=== PATIENT | male | born 2000 | race Caucasian/White ===

== ENCOUNTER 2018-01-18 13:51 | Observation (INO) | payer SELFPAY ==
[2018-01-18] MEDS ORDERED: NA CHLORIDE 0.9% 1,000 ML ONE (14:18)
[2018-01-18 15:26] LABS: Absolute Monocytes 0.9 K/uL (0.1-1.3); Absolute Neutrophil 16.5 K/uL (1.8-8.0); Basophils % 0.2 % (0-1.3); Eosinophils % 0.2 % (0-4.4); Hematocrit 46.2 % (39.6-49.0); Lymphocytes % 10.4 % (15.3-44.8); MCH 29.2 pg (27.0-35.0); MCV 85.3 fL (80-100); MPV 10.2 fL (7.6-11.3); Monocytes % 4.7 % (3.3-12.3); RBC Red Blood Cell Count 5.42 M/uL (4.33-5.43)
[2018-01-18 16:30] LABS: Albumin 4.4 g/dL (3.4-5.0); Bilirubin Direct 0.2 mg/dL (0-0.2); Bilirubin Total 0.7 mg/dL (0.2-1.0); Potassium 3.5 mmol/L (3.5-5.1); Protein, Total 8.2 g/dL (6.4-8.2); Troponin (Emerg Dept Use Only) 0.17 ng/mL (0.0-0.045)
--- NOTE | 2018-01-18 17:17 | RAD REPORT ---
EXAM DESCRIPTION: CT - Chest For Pe Angio - 01/18/2018 5:05 pm CLINICAL HISTORY: Chest pain COMPARISON: None. TECHNIQUE: Dynamically enhanced axial 3 mm thick images of the chest were obtained during administra tion of <100> mL Isovue 370 IV contrast. Coronal and oblique reconstruction images were generated and reviewed. Exam utilizes a protocol for optimal evaluation of pulmonary arterial tree. Maximum intensity projections 3D imaging was utilized All CT scans are performed using dose optimization technique as appropriate and may include automated exposure control or mA/KV adjustment according to patient size. FINDINGS: The opacification the pulmonary arteries is suboptimal. A gross pulmonary embolus is not seen. . A thoracic aortic aneurysm is not noted. A pleural effusion is not seen. A pericardial effusion is not seen. A lung consolidation is not present. Fatty infiltration liver seen IMPRESSION: Negative for a pulmonary embolism.
[2018-01-18] MEDS ORDERED: ASPIRIN 81 MG CHEWABLE TABLET ONE (17:43)
[2018-01-18] MEDS ORDERED: MORPHINE 2 MG/ML SYR IV PRN (20:03)
[2018-01-18] MEDS ORDERED: ONDANSETRON 4 MG/2 ML VIAL IV PRN (20:03)
[2018-01-18] MEDS ORDERED: ACETAMINOPHEN 500 MG TAB PO PRN (20:03)
--- NOTE | 2018-01-18 20:17 | ER ---
Nurse's Notes [facility] Name: Marvin Escudero Age: 17 yrs Sex: Male : 2000 Arrival Date: 01/18/2018 Time: 14:00 Bed 15 Private MD: Diagnosis: Elevated troponin Presentation: 01/18 14:00 Presenting complaint: Patient states: He was at work, and they got behind schedule so aj1 they started picking up the pace and working faster. Shortly after that he began to feel hot and dizzy so he told his partner that he needed to sit down, and EMS was called by his work personnel. Patient states that he feels better now, no complaints at this time. Denies pain. Transition of care: patient was not received from another setting of care. Onset of symptoms was January 18, 2018. Risk Assessment: Do you want to hurt yourself or someone else? Patient reports no desire to harm self or others. Initial Sepsis Screen: Does the patient meet any 2 criteria? No. Patient's initial sepsis screen is negative. Does the patient have a suspected source of infection? No. Patient's initial sepsis screen is negative. Care prior to arrival: Medication(s) given: Normal saline infusion, 250 mL IV initiated. 18 GA, in the left forearm, Glucose check: 130. 14:00 Method Of Arrival: EMS: [facility] aj1 14:00 Acuity: DEIRDRE 3 aj1 Triage Assessment: 14:04 General: Appears in no apparent distress. comfortable, Behavior is calm, cooperative, aj1 appropriate for age. Pain: Denies pain. Historical: - Allergies: 14:04 No Known Allergies; aj1 - Home Meds: 14:04 lisinopril 20 mg Oral tab 1 tab once daily [Active]; aj1 - PMHx: 14:04 Hypertension; aj1 - Immunization history:: Flu vaccine is not up to date. - Social history:: Smoking status: Patient/guardian denies using tobacco. - Ebola Screening: : Patient denies travel to an Ebola-affected area in the 21 days before illness onset. Screenin:06 Abuse screen: Denies threats or abuse. Denies injuries from another. Nutritional aj1 screening: No deficits noted. Tuberculosis screening: No symptoms or risk factors identified. 19:00 Fall Risk None identified. jb4 Assessment: 14:06 General: Appears in no apparent distress. comfortable, Behavior is calm, cooperative, aj1 appropriate for age. Pain: Denies pain. Neuro: Level of Consciousness is awake, alert, obeys commands. Cardiovascular: Denies chest pain, Patient's skin is warm and dry. Respiratory: Airway is patent Respiratory effort is even, unlabored, Respiratory pattern is regular, symmetrical, Denies shortness of breath. GI: No signs and/or symptoms were reported involving the gastrointestinal system. : No signs and/or symptoms were reported regarding the genitourinary system. EENT: No signs and/or symptoms were reported regarding the EENT system. Derm: No signs and/or symptoms reported regarding the dermatologic system. Skin is pink, warm \\T\\ dry. normal. Musculoskeletal: No signs and/or symptoms reported regarding the musculoskeletal system. Circulation, motion, and sensation intact. 15:14 Reassessment: Patient appears in no apparent distress at this time. No changes from aj1 previously documented assessment. Patient and/or family updated on plan of care and expected duration. Pain level reassessed. Patient is alert, oriented x 3, equal unlabored respirations, skin warm/dry/pink. 16:35 Reassessment: Patient appears in no apparent distress at this time. No changes from aj1 previously documented assessment. Patient and/or family updated on plan of care and expected duration. Pain level reassessed. Patient is alert, oriented x 3, equal unlabored respirations, skin warm/dry/pink. 16:45 Reassessment: Patient states that he does not want to be admitted, he would like to aj1 leave instead because he has "stuff to do", when asked what he needed to do that was more important than his life patient shrugged. Patient was educated on risks of leaving with elevated troponin, such as sudden cardiac . Patient states that he can't sleep when he is in the hospital. Offered to patient to obtain an order for a sleep aid to help him sleep. Patient declines. Stressed to patient how important cardiac work up is with elevated troponin level. Patient states that he will think about staying. 17:20 Reassessment: Patient and/or family updated on plan of care and expected duration. Pain aj1 level reassessed. General: Appears in no apparent distress. comfortable, Behavior is calm, cooperative, appropriate for age. Pain: Denies pain. Neuro:. Neuro: Level of Consciousness is awake, alert, obeys commands. Cardiovascular: Denies chest pain, Patient's skin is warm and dry. Rhythm is sinus rhythm Chest pain is denied. Respiratory: Airway is patent Respiratory effort is even, unlabored, Respiratory pattern is regular, symmetrical. GI: No signs and/or symptoms were reported involving the gastrointestinal system. : No signs and/or symptoms were reported regarding the genitourinary system. Derm: No signs and/or symptoms reported regarding the dermatologic system. Skin is pink, warm \\T\\ dry. normal. Musculoskeletal: Circulation, motion, and sensation intact. 17:50 Reassessment: Patient maintains that he does not want to be admitted, does not want to aj1 explain why. Explained to patient that he will have a private room, and we would do our best to accommodate any issue he has that is making him want to leave. Patient asks if a guest can stay with him in the room. Patient was told that would be fine. Patient states that he needs to make a phone call, and that will determine if he stays. 18:14 Reassessment: Patient appears in no apparent distress at this time. No changes from aj1 previously documented assessment. Patient and/or family updated on plan of care and expected duration. Pain level reassessed. Patient is alert, oriented x 3, equal unlabored respirations, skin warm/dry/pink. 18:27 Reassessment: Patient states that he would like to be discharged right now. Asked aj1 patient again if there was anything that we could do that would convince him to stay. Patient asks if we have a phone he can use. Patient was given phone at nurses station to make a phone call. After the call was completed patient states "I guess I'll stay." Notified FRANCHESCA Paz. 19:00 Reassessment: Patient appears in no apparent distress at this time. Patient and/or jb4 family updated on plan of care and expected duration. Pain level reassessed. Patient is alert, oriented x 3, equal unlabored respirations, skin warm/dry/pink. Guest at the bedside. Alarm noted on ECG monitor, Physician notified, repeat EKG performed. Patient states feeling better. 20:00 Reassessment: Patient appears in no apparent distress at this time. Patient and/or jb4 family updated on plan of care and expected duration. Pain level reassessed. Patient is alert, oriented x 3, equal unlabored respirations, skin warm/dry/pink. Patient states feeling better. 21:00 Reassessment: Patient appears in no apparent distress at this time. Patient and/or jb4 family updated on plan of care and expected duration. Pain level reassessed. Patient is alert, oriented x 3, equal unlabored respirations, skin warm/dry/pink. Pt transferred to [facility]. Vital Signs: 14:04 BP 138 / 68; Pulse 96; Resp 20; Temp 98.2(TE); Pulse Ox 96% on R/A; Weight 143.79 kg aj1 (R); Height 6 ft. 0 in. (182.88 cm) (R); Pain 0/10; 15:14 BP 133 / 58; Pulse 107; Resp 18; Pulse Ox 98% on R/A; aj1 16:45 BP 117 / 79; Pulse 92; Resp 20; Pulse Ox 98% on R/A; aj1 18:14 BP 127 / 75; Pulse 95; Resp 18; Pulse Ox 97% on R/A; 1 19:00 BP 138 / 87; Pulse 92; Resp 18; Pulse Ox 95% ; jb4 20:00 BP 138 / 55; Pulse 94; Resp 18; Pulse Ox 98% on R/A; jb4 21:00 BP 122 / 75; Pulse 89; Resp 18; Pulse Ox 98% on R/A; jb4 14:04 Body Mass Index 42.99 (143.79 kg, 182.88 cm) [facility] ED Course: 14:00 Patient arrived in ED. [facility] 14:00 Elliot Mccormack PA is PHCP. [facility] 14:00 Prince Shields MD is Attending Physician. [facility] 14:03 Triage completed. aj1 14:04 Arm band placed on. aj1 14:06 Patient has correct armband on for positive identification. Bed in low position. Call [facility] light in reach. Side rails up X 1. 14:06 No provider procedures requiring assistance completed. aj1 14:06 Maintain EMS IV. Dressing intact. Good blood return noted. Site clean \\T\\ dry. Gauge \\T\\ aj 1 site: 18g left AC. 14:10 Vicky Roca RN is Primary Nurse. 1 14:50 EKG done, by polysomnograph tech. reviewed by Ellito SORENSEN. 3 16:53 REPEAT EKG WAS DONE. 3 17:06 CT Chest For PE Angio In Process Unspecified. EDMS 19:00 vehicle monitor technician on. Pulse ox on. NIBP on. jb4 20:02 Primary Nurse role handed off by Vicky Roca, LAURE [email or web address] 20:02 Yahir Lazo, RN is Primary Nurse. jb4 20:16 Ledy Mejia MD is Hospitalizing Provider. jm 21:00 Patient admitted, IV remains in place. jb4 Administered Medications: 14:49 Drug: NS 0.9% 1000 ml Route: IV; Rate: 1000 ml; Site: left antecubital; aj1 17:41 Drug: Aspirin Chewable Tablet 324 mg Route: PO; aj1 Outcome: 20:16 Decision to Hospitalize by Provider. [facility] 21:00 Admitted to Tele accompanied by nurse, via wheelchair, room 409, with chart, Report jb4 called to Mony Hawthorne RN 21:00 Condition: stable 21:00 Instructed on the need for admit, Demonstrated understanding of follow-up care. 21:18 Patient left the ED. jb4 Signatures: Dispatcher [employer] EDMS Vicky Roca, LAURE RN aj1 Elliot Mccormack PA PA [facility] Yahir Lazo, RN RN jb4 Isa Rascon 3
--- NOTE | 2018-01-18 20:17 | EDPHYS ---
Physician Documentation [facility] Name: Marvin Escudero Age: 17 yrs Sex: Male : 2000 Arrival Date: 01/18/2018 Time: 14:00 Bed 15 Private MD: ED Physician Prince Shields HPI: 01/18 14:08 This 17 yrs old Male presents to ER via EMS with complaints of Dizziness. jmm 14:08 The patient has experienced near-syncope. Onset: The symptoms/episode began/occurred jmm acutely, just prior to arrival. Associated injury: The patient did not suffer any apparent associated injury. Associated signs and symptoms: Pertinent positives: dizziness, Pertinent negatives: chest pain. This is a 17 year old male with a history of htn that presents to the ED with a near syncopal episode secondary to working outside just prior to arrival. Patient states his symptoms have improved after administration of IVF. Patient currently denies chest pain or shortness of breath. . Historical: - Allergies: 14:04 No Known Allergies; aj1 - Home Meds: 14:04 lisinopril 20 mg Oral tab 1 tab once daily [Active]; aj1 - PMHx: 14:04 Hypertension; aj1 - Immunization history:: Flu vaccine is not up to date. - Social history:: Smoking status: Patient/guardian denies using tobacco. - Ebola Screening: : Patient denies travel to an Ebola-affected area in the 21 days before illness onset. ROS: 14:08 Constitutional: Negative for fever, chills, and weight loss, Cardiovascular: Negative jmm for chest pain, palpitations, and edema, Respiratory: Negative for shortness of breath, cough, wheezing, and pleuritic chest pain. 14:08 Neuro: Positive for dizziness, near syncope. 14:08 All other systems are negative. Exam: 14:08 Constitutional: This is a well developed, well nourished patient who is awake, alert, jmm and in no acute distress. Head/Face: atraumatic. Eyes: EOMI, no conjunctival erythema appreciated ENT: Moist Mucus Membranes Neck: Trachea midline, Supple Chest/axilla: Normal chest wall appearance and motion. Cardiovascular: Regular rate and rhythm. No edema appreciated Respiratory: Normal respirations, no respiratory distress appreciated Abdomen/GI: Non distended, soft Back: Normal ROM Skin: General appearance color normal MS/ Extremity: Moves all extremities, no obvious deformities appreciated, no edema noted to the lower extremities Neuro: Awake and alert, normal gait Psych: Behavior is normal, Mood is normal, Patient is cooperative and pleasant 14:08 Constitutional: The patient appears in no acute distress, alert, awake. 14:19 ECG was reviewed by the Attending Physician. [facility] Vital Signs: 14:04 BP 138 / 68; Pulse 96; Resp 20; Temp 98.2(TE); Pulse Ox 96% on R/A; Weight 143.79 kg [facility] (R); Height 6 ft. 0 in. (182.88 cm) (R); Pain 0/10; 15:14 BP 133 / 58; Pulse 107; Resp 18; Pulse Ox 98% on R/A; aj1 16:45 BP 117 / 79; Pulse 92; Resp 20; Pulse Ox 98% on R/A; 1 18:14 BP 127 / 75; Pulse 95; Resp 18; Pulse Ox 97% on R/A; 1 19:00 BP 138 / 87; Pulse 92; Resp 18; Pulse Ox 95% ; jb4 20:00 BP 138 / 55; Pulse 94; Resp 18; Pulse Ox 98% on R/A; jb4 21:00 BP 122 / 75; Pulse 89; Resp 18; Pulse Ox 98% on R/A; jb4 14:04 Body Mass Index 42.99 (143.79 kg, 182.88 cm) [facility] MDM: 14:09 Patient medically screened. [facility] 20:27 Data reviewed: vital signs, nurses notes, lab test result(s), EKG, radiologic studies, [facility] CT scan, plain films. Counseling: I had a detailed discussion with the patient and/or guardian regarding: the historical points, exam findings, and any diagnostic results supporting the discharge/admit diagnosis, lab results, radiology results, the need for further work-up and treatment in the hospital. ED course: I discussed the patient with Dr. Mejia whom accepted transfer. 01/18 14:10 Order name: Basic Metabolic Panel; Complete Time: 16:30 [facility] 01/18 14:10 Order name: CBC with Diff; Complete Time: 15:38 [facility] 01/18 14:10 Order name: Creatinine for Radiology; Complete Time: 16:29 [facility] 01/18 14:10 Order name: Hepatic Function; Complete Time: 16:30 [facility] 01/18 14:10 Order name: Lipase; Complete Time: 16:30 [facility] 01/18 14:10 Order name: CPK; Complete Time: 16:30 [facility] 01/18 14:10 Order name: Troponin (emerg Dept Use Only); Complete Time: 16:30 [facility] 01/18 18:36 Order name: Troponin (emerg Dept Use Only); Complete Time: 20:01 [facility] 01/18 20:07 Order name: CBC with Automated Diff [facility] 01/18 20:07 Order name: CBC with Automated Diff [facility] 01/18 20:07 Order name: CKMB Creatine Kinase MB [facility] 01/18 20:07 Order name: CKMB Creatine Kinase MB [facility] 01/18 20:07 Order name: CKMB Creatine Kinase MB [facility] 01/18 20:07 Order name: Comprehensive Metabolic Panel [facility] 01/18 16:49 Order name: CT Chest For PE Angio; Complete Time: 17:19 [facility] 01/18 17:54 Order name: EKG Electrocardiogram [facility] 01/18 17:54 Order name: EKG Electrocardiogram [facility] 01/18 20:07 Order name: CONS Pharmacy Consult [facility] 01/18 20:07 Order name: Echo with Doppler [facility] 01/18 20:07 Order name: Comprehensive Metabolic Panel [facility] 01/18 20:07 Order name: Creatine Phosphokinase [facility] 01/18 20:07 Order name: Creatine Phosphokinase [facility] 01/18 20:07 Order name: Creatine Phosphokinase [facility] 01/18 20:07 Order name: Lipid Profile [facility] 01/18 20:07 Order name: Lipid Profile [facility] 01/18 20:07 Order name: Troponin I [facility] 01/18 20:07 Order name: Troponin I [facility] 01/18 20:07 Order name: Troponin I [facility] 01/18 14:10 Order name: IV Saline Lock; Complete Time: 14:11 [facility] 01/18 14:10 Order name: Labs collected and sent; Complete Time: 14:11 [facility] 01/18 14:10 Order name: EKG - Nurse/Tech; Complete Time: 14:50 [facility] 01/18 19:21 Order name: EKG - Nurse/Tech; Complete Time: 20:02 [facility] 01/18 20:07 Order name: Regular EDMS EC:19 Rate is 94 beats/min. Rhythm is regular. QRS [place] is Normal. [place] interval is normal. QRS jmm interval is normal. QT interval is normal. No Q waves. T waves are Normal. No ST changes noted. Reviewed by me. Administered Medications: 14:49 Drug: NS 0.9% 1000 ml Route: IV; Rate: 1000 ml; Site: left antecubital; aj1 17:41 Drug: Aspirin Chewable Tablet 324 mg Route: PO; aj1 Disposition: 01/18/18 20:16 Hospitalization ordered by Ledy Mejia for Observation. Preliminary diagnosis is Elevated troponin. - Bed requested for Telemetry/MedSurg (observation). - Status is Observation. jb4 - Condition is Stable. - Problem is new. - Symptoms have improved. UTI on Admission? No Addendum: 01/20/2018 13:37 Co-signature as Attending Physician, Prince Shields MD I agree with the assessment and k dr plan of care. Signatures: Dispatcher [employer] EDVicky Ojeda RN RN aj1 Shannon Nguyen RN RN mw Rittger, Kevin, MD MD [facility] Elliot Mccormack PA PA jmm Bryson, James, RN RN jb4 Corrections: (The following items were deleted from the chart) 01/18 20:31 20:16 Hospitalization Ordered by Ledy Mejia MD for Observation. Preliminary diagnosis is Elevated troponin. Bed requested for Telemetry/MedSurg (observation). Status is Observation. Condition is Stable. Problem is new. Symptoms have improved. UTI on Admission? No. [facility] 21:18 20:31 01/18/2018 20:16 Hospitalization Ordered by Ledy Mejia MD for Observation. jb4 Preliminary diagnosis is Elevated troponin. Bed requested for Telemetry/MedSurg (observation). Status is Observation. Condition is Stable. Problem is new. Symptoms have improved. UTI on Admission? No. donald
[2018-01-18] MEDS ORDERED: NA CHLORIDE 0.9% 1,000 ML IV SCH (21:00)
[2018-01-18 21:31] VITALS: BMI 43.3
[2018-01-18 21:34] VITALS: O2SAT 98
[2018-01-19 01:11] LABS: CKMB Creatine Kinase MB 7.3 ng/mL (0.3-3.6); Troponin I 0.08 ng/mL (0.0-0.045)
[2018-01-19] MEDS: D5W 1,000 ML with NA BICARB 8.4% 50 MEQ IV SCH ×4 (03:00→10:00)
[2018-01-19] MEDS ORDERED: SODIUM BICARB 50 MEQ/50ML VIAL ONE (03:22)
[2018-01-19] MEDS ORDERED: D5W 1,000 ML IV ONE (03:23)
[2018-01-19 05:23] LABS: Absolute Lymphocytes (CBC) 4.3 K/uL (0.7-4.9); Absolute Monocytes 0.9 K/uL (0.1-1.3); Absolute Neutrophil 5.1 K/uL (1.8-8.0); Basophils % 0.4 % (0-1.3); Eosinophils % 2.3 % (0-4.4); Hematocrit 42.5 % (39.6-49.0); Lymphocytes % 40.5 % (15.3-44.8); MCH 29.5 pg (27.0-35.0); MCV 86.1 fL (80-100); MPV 9.5 fL (7.6-11.3); Monocytes % 8.6 % (3.3-12.3); RBC Red Blood Cell Count 4.94 M/uL (4.33-5.43)
[2018-01-19 05:58] LABS: ALT/SGPT 101 U/L (12-78); AST/SGOT 66 U/L (15-37); Albumin 3.6 g/dL (3.4-5.0); Alkaline Phosphatase 65 U/L (45-117); BUN Blood Urea Nitrogen 13 mg/dL (7-18); Bicarbonate 24 mmol/L (21-32); Bilirubin Total 0.5 mg/dL (0.2-1.0); Glucose Level 110 mg/dL (74-106); HDL Cholesterol 29 mg/dL (40-60); LDL Cholesterol, Calculated 84 (<130); Potassium 3.7 mmol/L (3.5-5.1); Protein, Total 6.8 g/dL (6.4-8.2); Sodium Level 141 mmol/L (136-145)
[2018-01-19 06:06] LABS: CKMB Creatine Kinase MB 5.9 ng/mL (0.3-3.6); Troponin I 0.04 ng/mL (0.0-0.045)
[2018-01-19] MEDS ORDERED: MORPHINE 4 MG/ML SYR IV PRN (07:10)
--- NOTE | 2018-01-19 08:12 | P.HP ---
Certification for Inpatient Patient admitted to: Observation With expected LOS: <2 Midnights Patient will require the following post-hospital care: None Practitioner: I am a practitioner with admitting privileges, knowledge of patient current condition, hospital course, and medical plan of care. 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 Apparently they were behind and his visual supervisor was pushing him to do a lot in a short amount of town. He said he was released for after we working all day. He started feeling hot and cold but was not having significant diaphoresis. He was drinking a lot of fluids but he just was not feeling better so he came into the emergency room. In the emergency room he was found to have mildly elevated CPK and troponin levels. He was admitted to the hospital for further observation. I think the troponin is an incidental finding with his elevation in his muscle enzyme. Will monitor the trend and get an echocardiogram. Patient is not having any chest pain and not having any EKG changes the either. Patient will be admitted for observation. Allergies No Known Allergies Allergy (Unverified 01/18/18 20:25) Home Medications: Lisinopril [Prinivil] 20 mg PO DAILY 01/19/18 - Past Medical/Surgical History Diabetic: No -: HTN -: none - Family History Father Medical History: Hypertension, Other (see notes) Mother Medical History: Other (see notes) - Social History Smoking Status: Never smoker Alcohol use: Yes CD- Drugs: No Caffeine use: Yes Place of Residence: Home Review of Systems 10-point ROS is otherwise unremarkable Physical Examination - Vital Signs Temperature: 97.3 F Blood Pressure: 131/61 Pulse: 85 Respirations: 20 Pulse Ox (%): 96 - Physical Exam General: Alert, In no apparent distress, Oriented x3 HEENT: Atraumatic, PERRLA, Mucous membr. moist/pink, EOMI, Sclerae nonicteric Neck: Supple, 2+ carotid pulse no bruit, No LAD, Without JVD or thyroid abnormality Respiratory: Clear to auscultation bilaterally, Normal air movement Cardiovascular: Regular rate/rhythm, Normal S1 S2, No murmurs Gastrointestinal: Normal bowel sounds, Soft and benign, Non-distended, No tenderness Musculoskeletal: No clubbing, No swelling, No tenderness Integumentary: No rashes Neurological: Normal gait, Normal speech, Normal strength at 5/5 x4 extr, Normal tone, Sensation intact, Cranial nerves 3-12 intact, Normal affect Lymphatics: No axilla or inguinal lymphadenopathy - Studies Laboratory Data (last 24 hrs) 01/18/18 14:15: Creatinine 1.20 01/18/18 14:15: WBC 19.5 H, Hgb 15.8, Hct 46.2, Plt Count 277 01/18/18 14:15: Sodium 139, Potassium 3.5, BUN 18, Creatinine 1.20, Glucose 71 L , Total Bilirubin 0.7, AST 53 H, ALT 121 H, Alkaline Phosphatase 76, Lipase 124 Assessment & Plan - Problems (Diagnosis) (1) Rhabdomyolysis Current Visit: Yes Status: Acute (2) Elevated troponin Current Visit: Yes Status: Acute - Plan Plan: 1. Aggressive IV hydration 2. Bicarbonate drip 3. Monitor CPK level as well as urine pH 4. GI and DVT prophylaxis - Advance Directives Does patient have a Living Will: No Does patient have a Durable POA for Healthcare: No - Code Status/Comfort Care Code Status Assessed: Yes Code Status: Full Code Critical Care: No
--- NOTE | 2018-01-19 08:13 | EKG ---
Test Date: 2018-01-18 Test Time: 19:21:54 Medicare Nurse: FE MEASUREMENT RESULTS: Intervals: Rate: 82 MA: 138 QRSD: 106 QT: 376 QTc: 439 [place]: P: 28 MA: 138 QRS: 13 T: 26 INTERPRETIVE STATEMENTS: Normal sinus rhythm Normal ECG Compared to ECG 01/18/2018 16:46:31 No significant changes Electronically Signed On 01-19-18 08:13:11 CDT by Kaden Pineda
--- NOTE | 2018-01-19 08:14 | EKG ---
Test Date: 2018-01-18 Test Time: 16:46:31 Bail Attacher: EMMIE MEASUREMENT RESULTS: Intervals: Rate: 90 [place]: 174 QRSD: 110 QT: 360 QTc: 440 [place]: P: 21 [place]: 174 QRS: 7 T: 34 INTERPRETIVE STATEMENTS: Normal sinus rhythm Normal ECG Compared to ECG 01/18/2018 14:19:13 No significant changes Electronically Signed On 01-19-18 08:14:06 CDT by Kaden Pineda
--- NOTE | 2018-01-19 08:16 | EKG ---
Test Date: 2018-01-18 Test Time: 14:19:13 Cco: EMMIE MEASUREMENT RESULTS: Intervals: Rate: 94 [place]: 174 QRSD: 108 QT: 356 QTc: 445 [place]: P: 29 [place]: 174 QRS: 24 T: 36 INTERPRETIVE STATEMENTS: Normal sinus rhythm Normal ECG No previous ECG available for comparison Electronically Signed On 01-19-18 08:15:34 CDT by Kaden Pineda
[2018-01-19 08:45] LABS: Urine Bacteria NONE SEEN /HPF (NONE SEEN); Urine RBC NONE SEEN /HPF (NONE SEEN)
[2018-01-19 08:46] LABS: Urine Culture Reflex Order REFLEXED
[2018-01-19] MEDS ORDERED: ASPIRIN EC 81 MG TAB PO SCH (09:00)
[2018-01-19] MEDS ORDERED: D5W 1,000 ML with NA BICARB 8.4% 50 MEQ IV SCH ×2 (14:00)
[2018-01-19 14:10] VITALS: BP 142/71; TEMP 98.4
--- NOTE | 2018-01-19 14:22 | ECHO ---
HEIGHT: 6 ft 0 in WEIGHT: 319 lb 8 oz DATE OF STUDY: 01/19/[address]: 2-DIMENSIONAL: YES M.MODE: YES DOPPLER: YES COLOR FLOW: YES TDS: NO PORTABLE: NO DEFINITY: NO BUBBLE STUDY: NO DIAGNOSIS: CHEST PAIN. RULE OUT ACUTE CORONARY SYNDROME CARDIAC HISTORY: CATHERIZATION: NO SURGERY: NO PROSTHETIC VALVE: NO PACEMAKER: NO MEASUREMENTS (cm) DIASTOLIC (NORMALS) SYSTOLIC (NORMALS) IVSd 1.2 (0.6-1.2) LA Diam 3.4 (1.9-4.0) LVEF 72% LVIDd 4.5 (3.5-5.7) LVIDs 2.6 (2.0-3.5) %FS 41% LVPWd 1.0 (0.6-1.2) Ao Diam 2.7 (2.0-3.7) 2 DIMENSIONAL ASSESSMENT: RIGHT ATRIUM: NORMAL LEFT ATRIUM: NORMAL RIGHT VENTRICLE: NORMAL LEFT VENTRICLE: NORMAL TRICUSPID VALVE: NORMAL MITRAL VALVE: NORMAL PULMONIC VALVE: NORMAL AORTIC VALVE: NORMAL PERICARDIAL EFFUSION: NONE AORTIC ROOT: NORMAL LEFT VENTRICULAR WALL MOTION: NORMAL. DOPPLER/COLOR FLOW: NORMAL. COMMENTS: NORMAL 2D ECHOCARDIOGRAM WITH DOPPLER. TECHNICALLY DIFFICULT STUDY. TECHNOLOGIST: TONI OTOOLE
--- NOTE | 2018-01-19 14:28 | P.SSS ---
Patient History Date of Service: 01/19/18 Primary Care Provider: Dr. 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 Apparently they were behind and his right of way supervisor was pushing him to do a lot in a short amount of town. He said he was released from work after working all day. He started feeling hot and cold but was not having significant diaphoresis. He was drinking a lot of fluids but he just was not feeling better so he came into the emergency room. In the emergency room he was found to have mildly elevated CPK and troponin levels. He was admitted to the hospital for further observation. I think the troponin is an incidental finding with his elevation in his muscle enzyme. Will monitor the trend and get an echocardiogram. Patient is not having any chest pain and not having any EKG changes the either. Patient will be admitted for observation. Allergies No Known Allergies Allergy (Unverified 01/18/18 20:25) Home Medications: Lisinopril [Prinivil*] 20 mg PO DAILY 01/19/18 - Past Medical/Surgical History Diabetic: No -: HTN -: none - Family History Father -: Hypertension, Other (see notes) Mother -: Other (see notes) - Social History Smoking Status: Never smoker Alcohol use: Yes CD- Drugs: No Caffeine use: Yes Place of Residence: Home Review of Systems 10-point ROS is otherwise unremarkable Physical Examination - Vital Signs Temperature: 98.4 F Blood Pressure: 142/71 Pulse: 79 Respirations: 18 Pulse Ox (%): 97 - Physical Exam General: Alert, In no apparent distress HEENT: Atraumatic, PERRLA, Mucous membr. moist/pink, EOMI, Sclerae nonicteric Neck: Supple, 2+ carotid pulse no bruit, No LAD, Without JVD or thyroid abnormality Respiratory: Clear to auscultation bilaterally, Normal air movement Cardiovascular: Regular rate/rhythm, Normal S1 S2 Gastrointestinal: Normal bowel sounds, No tenderness Musculoskeletal: No tenderness Integumentary: No rashes Neurological: Normal gait, Normal speech, Normal strength at 5/5 x4 extr, Normal tone, Normal affect Lymphatics: No axilla or inguinal lymphadenopathy - Studies Laboratory Data (last 24 hrs) 01/18/18 14:15: Creatinine 1.20 01/18/18 14:15: WBC 19.5 H, Hgb 15.8, Hct 46.2, Plt Count 277 01/18/18 14:15: Sodium 139, Potassium 3.5, BUN 18, Creatinine 1.20, Glucose 71 L , Total Bilirubin 0.7, AST 53 H, ALT 121 H, Alkaline Phosphatase 76, Lipase 124 - Diagnosis (Problem(s)) (1) Elevated troponin Onset Date: 01/19/18 Current Visit: Yes Status: Resolved (2) Rhabdomyolysis Onset Date: 01/19/18 Current Visit: Yes Status: Resolved Treatment Summary: Patient was admitted, aggressive IV hydration was started. He was also given bicarb in the fluids. His CPK levels trended down as did his troponin levels. An ECHO was ordered, which was normal. Upon my examination on the day of the discharge, patient stated that all his symptoms had completely resolved and he was feeling much better. I discussed with patient the importance of PO hydration as well as making an appointment with primary care in the next 2-3 days so he could draw some labs for followup. - Disposition Disposition: ROUTINE DISCHARGE Condition: GOOD Patient Discharge Instructions: Please make sure to follow up with your primary care physician in 2-3 days for follow up and lab work. Diet: Renal Activity: Ad martha Time Spent Managing Pts Care (In Minutes): 30
== END 2018-01-19 15:28 | disposition home or self-care (01) ==
LOC: ER 13:51 → ERHOLD 20:06 → 4TH 20:59
PROVIDERS: ADMIT Hospitalist; ATTEND Hospitalist
DX: M62.82 Rhabdomyolysis (principal); I10 Essential (primary) hypertension
CPT/HCPCS: 36415; 71275; 80048; 80053; 80061; 80076; 81015; 82550; 82553; 83690; 84484; 85025; 87086; 87088; 93005; 93306; 99285; G0378; J2270; J7030; Q9967